=== PATIENT | male | born 2005 | race African-American/Black ===

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

== ENCOUNTER 2023-08-14 09:06 | Emergency (ER) | payer OTHER ==
[2023-08-14] MEDS ORDERED: Cyclobenzaprine 10 MG TAB ONE (09:16)
== END 2023-08-14 10:12 | disposition home or self-care (01) ==
LOC: ERS 09:06
DX: M54.50 Low back pain, unspecified (principal)
CPT/HCPCS: 72072; 72128

== ENCOUNTER 2024-08-10 12:13 | Emergency (ER) | payer SELFPAY | END 2024-08-10 12:33 | disposition home or self-care (01) | LOC: ERS 12:13 | DX: Z00.00 Encounter for general adult medical examination without abnormal findings (principal) | CPT/HCPCS: 99281 ==